=== PATIENT | female | born 1990 | race Caucasian/White ===

== ENCOUNTER 2019-02-21 12:56 | Emergency (ER) | payer SELFPAY ==
[2019-02-21 13:50] LABS: Absolute Lymphocytes (CBC) 1.5 K/uL (0.7-4.9); Absolute Monocytes 0.5 K/uL (0.1-1.3); Absolute Neutrophil 4.2 K/uL (1.8-8.0); Basophils % 0.5 % (0-1.3); Eosinophils % 1.8 % (0-4.4); Hematocrit 40.3 % (36.0-45.0); Lymphocytes % 24.2 % (15.3-44.8); MPV 8.9 fL (7.6-11.3); Monocytes % 8.2 % (3.3-12.3); RBC Red Blood Cell Count 4.56 M/uL (3.86-4.86)
[2019-02-21 14:15] LABS: BUN Blood Urea Nitrogen 10 mg/dL (7-18); Bicarbonate 27 mmol/L (21-32); Glucose Level 85 mg/dL (74-106); HCG, Quantitative 2 mIU/mL (1-3); Potassium 3.9 mmol/L (3.5-5.1); Sodium Level 141 mmol/L (136-145)
[2019-02-21 14:26] LABS: Urine Blood 3+ (NEG); Urine Glucose NEGATIVE (NEG); Urine Protein NEGATIVE (NEG)
--- NOTE | 2019-02-21 14:35 | EDPHYS ---
Physician Documentation [facility] Name: Spencer Vang Age: 28 yrs Sex: Female : 1990 Arrival Date: 02/21/2019 Time: 13:00 Bed 20 Private MD: ED Physician Cory Kulkarni HPI: 02/21 14:49 This 28 yrs old Female presents to ER via Ambulatory with complaints of kb Vaginal Bleeding, + Preg <12wks. 14:49 The patient presents to the emergency department with vaginal bleeding, that is light. kb course: care: none, Leakage of Fluid: none appreciated, Ultrasound: the patient has not had an ultrasound, Risk/complications: no obvious risks or complications are appreciated. Previous pregnancies: in previous pregnancies patient has had. Associated signs and symptoms: Pertinent positives: vaginal bleeding. The patient has not experienced similar symptoms in the past. The patient has not recently seen a physician. 14:50 Pt reports she took 2 tests last week and they were positive. Started having kb vaginal bleeding this morning. 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 - Social history:: Smoking status: Patient/guardian denies using tobacco. - Ebola Screening: : No symptoms or risks identified at this time. ROS: 14:48 Constitutional: Negative for fever, chills, and weight loss, Cardiovascular: Negative kb for chest pain, palpitations, and edema, Respiratory: Negative for shortness of breath, cough, wheezing, and pleuritic chest pain, Abdomen/GI: Negative for abdominal pain, nausea, vomiting, diarrhea, and constipation, MS/Extremity: Negative for injury and deformity, Skin: Negative for injury, rash, and discoloration, Neuro: Negative for headache, weakness, numbness, tingling, and seizure. 14:48 : Positive for vaginal bleeding. Exam: 14:48 Constitutional: This is a well developed, well nourished patient who is awake, alert, kb and in no acute distress. Head/Face: Normocephalic, atraumatic. Chest/axilla: Normal chest wall appearance and motion. Nontender with no deformity. No lesions are appreciated. Cardiovascular: Regular rate and rhythm with a normal S1 and S2. No gallops, murmurs, or rubs. Normal PMI, no JVD. No pulse deficits. Respiratory: Lungs have equal breath sounds bilaterally, clear to auscultation and percussion. No rales, rhonchi or wheezes noted. No increased work of breathing, no retractions or nasal flaring. Abdomen/GI: Soft, non-tender, with normal bowel sounds. No distension or tympany. No guarding or rebound. No evidence of tenderness throughout. Skin: Warm, dry with normal turgor. Normal color with no rashes, no lesions, and no evidence of cellulitis. MS/ Extremity: Pulses equal, no cyanosis. Neurovascular intact. Full, normal range of motion. Neuro: Awake and alert, GCS 15, oriented to person, place, time, and situation. Cranial nerves II-XII grossly intact. Motor strength 5/5 in all extremities. Sensory grossly intact. Cerebellar exam normal. Normal gait. Vital Signs: 13:01 BP 117 / 85; Pulse 88; Resp 16; Temp 98.4; Pulse Ox 100% ; Weight 63.5 kg; Height 5 ft. sv 5 in. (165.10 cm); Pain 0/10; 14:00 BP 114 / 78; Pulse 81; Resp 18; Pulse Ox 99% on R/A; ph 15:00 BP 111 / 81; Pulse 89; Resp 18; Temp 97.6; Pulse Ox 99% on R/A; ph 13:01 Body Mass Index 23.30 (63.50 kg, 165.10 cm) sv MDM: 13:23 Patient medically screened. kb 14:49 Data reviewed: vital signs, nurses notes. Data interpreted: Pulse oximetry: on room air kb is 100 %. Interpretation: normal. Counseling: I had a detailed discussion with the patient and/or guardian regarding: the historical points, exam findings, and any diagnostic results supporting the discharge/admit diagnosis, lab results, the need for outpatient follow up, an OB/Gyne specialist, to return to the emergency department if symptoms worsen or persist or if there are any questions or concerns that arise at home. 02/21 13:23 Order name: Quantitative Hcg; Complete Time: 14:16 kb 02/21 13:23 Order name: Abo/rh Typing; Complete Time: 14:40 kb 02/21 13:23 Order name: Basic Metabolic Panel; Complete Time: 14:16 kb 02/21 13:23 Order name: CBC with Diff; Complete Time: 14:01 kb 02/21 13:45 Order name: Urine Dipstick--Ancillary (enter results); Complete Time: 14:32 bd 02/21 13:45 Order name: Urine --Ancillary (enter results); Complete Time: 14:32 bd 02/21 13:23 Order name: Urine Test (obtain specimen); Complete Time: 13:47 kb 02/21 13:23 Order name: IV Saline Lock; Complete Time: 13:47 kb 02/21 13:23 Order name: Labs collected and sent; Complete Time: 13:47 kb 02/21 13:23 Order name: NPO; Complete Time: 13:48 kb 02/21 13:23 Order name: Urine Dipstick-Ancillary (obtain specimen); Complete Time: 13:48 kb Administered Medications: No medications were administered Point of Care Testing: Urine : 13:30 hCG Reading: Negative; ph Disposition: 15:26 Co-signature as Attending Physician, Cory Kulkarni MD I agree with the assessment and thomas plan of care. 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 Disposition: 02/21/19 14:35 Discharged to Home. Impression: Irregular menstruation, unspecified. - Condition is Stable. - Discharge Instructions: Abnormal Uterine Bleeding, Hpel-vc-[id number]. - Medication Reconciliation Form, Thank You Letter, Antibiotic Education, Prescription Opioid Use form. - Follow up: Emergency Department; When: As needed; Reason: Worsening of condition. Follow up: Private Physician; When: 2 - 3 days; Reason: Recheck today's complaints, Continuance of care, Re-evaluation by your physician. Signatures: Dispatcher [employer] Radha Alvarado, iLzet Nicholas RN RN sv Anderson, Corey, MD MD cha Hall, Patricia RN RN ph Corrections: (The following items were deleted from the chart) 14:33 14:17 Transvaginal Ob+US.RAD.BRZ ordered. EDDC EDDC 15:14 14:35 02/21/2019 14:35 Discharged to Home. Impression: Irregular menstruation, ph unspecified. Condition is Stable. Forms are Medication Reconciliation Form, Thank You Letter, Antibiotic Education, Prescription Opioid Use. Follow up: Emergency Department; When: As needed; Reason: Worsening of condition. Follow up: Private Physician; When: 2 - 3 days; Reason: Recheck today's complaints, Continuance of care, Re-evaluation by your physician. kb
--- NOTE | 2019-02-21 14:35 | ER ---
Nurse's Notes [facility] Name: Spencer Vang Age: 28 yrs Sex: Female : 1990 Arrival Date: 02/21/2019 Time: 13:00 Bed 20 Private MD: Diagnosis: Irregular menstruation, unspecified Presentation: 02/21 13:00 Presenting complaint: Patient states: vaginal bleeding and lightheadedness started sv today, pt is about 4-5 weeks . 1 pad used within the last couple of hours. Transition of care: patient was not received from another setting of care. Onset of symptoms was February 21, 2019. Care prior to arrival: None. 13:00 Method Of Arrival: Ambulatory sv 13:00 Acuity: TORSTEN 3 sv 13:30 Risk Assessment: Do you want to hurt yourself or someone else? Patient reports no ph desire to harm self or others. Initial Sepsis Screen: Does the patient meet any 2 criteria? No. Patient's initial sepsis screen is negative. Does the patient have a suspected source of infection? No. Patient's initial sepsis screen is negative. Triage Assessment: 13:02 General: Appears in no apparent distress. comfortable, Behavior is calm, cooperative, sv appropriate for age. Pain: Denies pain. Neuro: Level of Consciousness is awake, alert, obeys commands, Oriented to person, place, time, situation, Gait is steady. Respiratory: Respiratory effort is even, unlabored, Respiratory pattern is regular, symmetrical. : Reports vaginal bleeding that is bright red, spotty. 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 - Social history:: Smoking status: Patient/guardian denies using tobacco. - Ebola Screening: : No symptoms or risks identified at this time. Screenin:36 Abuse screen: Denies threats or abuse. Denies injuries from another. Nutritional ph screening: No deficits noted. Tuberculosis screening: No symptoms or risk factors identified. Fall Risk None identified. Assessment: 13:30 General: Appears in no apparent distress. comfortable, slender, well groomed, Behavior ph is calm, cooperative, appropriate for age. Pain: Denies pain. Neuro: Level of Consciousness is awake, alert, obeys commands, Oriented to person, place, time, situation, Reports dizziness. Cardiovascular: Capillary refill < 3 seconds in bilateral fingers Patient's skin is warm and dry. Respiratory: Airway is patent Respiratory effort is even, unlabored. : Reports vaginal bleeding that is with clots, moderate flow. Derm: Skin is intact, is healthy with good turgor, Skin is pink, warm \T\ dry. 14:30 Reassessment: Patient appears in no apparent distress at this time. Patient and/or ph family updated on plan of care and expected duration. Pain level reassessed. Patient is alert, oriented x 3, equal unlabored respirations, skin warm/dry/pink. Pt resting quietly, awaiting US results. Vital Signs: 13:01 BP 117 / 85; Pulse 88; Resp 16; Temp 98.4; Pulse Ox 100% ; Weight 63.5 kg; Height 5 ft. sv 5 in. (165.10 cm); Pain 0/10; 14:00 BP 114 / 78; Pulse 81; Resp 18; Pulse Ox 99% on R/A; ph 15:00 BP 111 / 81; Pulse 89; Resp 18; Temp 97.6; Pulse Ox 99% on R/A; ph 13:01 Body Mass Index 23.30 (63.50 kg, 165.10 cm) sv ED Course: 13:00 Patient arrived in ED. sv 13:01 Triage completed. sv 13:02 Arm band placed on. sv 13:22 Rad[facility] Carnes FNP-C [facility] kb 13:23 Cory Kulkarni MD is Attending Physician. kb 13:30 Patient has correct armband on for positive identification. Placed in gown. Bed in low ph position. Call light in reach. Side rails up X 1. Pulse ox on. NIBP on. Door closed. Noise minimized. Warm blanket given. 13:33 Initial lab(s) drawn, by me, sent to lab. Inserted saline lock: 22 gauge in right dh3 antecubital area, using aseptic technique. Blood collected. 13:48 Urine collected: clean catch specimen, clear, tamika blood, sediment noted. [facility] 15:01 Toña Harvey RN is Primary Nurse. ph 15:15 No provider procedures requiring assistance completed. IV discontinued, intact, ph bleeding controlled, No redness/swelling at site. Pressure dressing applied. Administered Medications: No medications were administered Point of Care Testing: Urine : 13:30 hCG Reading: Negative; ph Outcome: 14:35 Discharge ordered by . aliza 15:14 Patient left the ED. ph 15:14 Discharged to home ambulatory, with significant other. ph 15:14 Condition: good 15:14 Discharge instructions given to patient, Instructed on discharge instructions, follow up and referral plans. Demonstrated understanding of instructions, follow-up care. Signatures: Radha Carnes, Lizet Nicholas, RN RN sv Toña Harvey RN RN Benita Devries [facility] Corrections: (The following items were deleted from the chart) 13:03 13:01 Pulse 88bpm; Resp 16bpm; Pulse Ox 100%; Temp 98.4F; 63.5 kg; Height 5 ft. 5 in.; sv BMI: 23.3; Pain 0/10; sv
== END 2019-02-21 15:14 | disposition home or self-care (01) ==
LOC: ER 12:56
DX: N92.6 Irregular menstruation, unspecified (principal)
CPT/HCPCS: 36415; 80048; 81003; 81025; 84702; 85025; 86900; 86901; 99284

== ENCOUNTER 2023-09-08 14:45 | Emergency (ER) | payer OTHER, SELFPAY ==
--- OUTSIDE RECORDS SUMMARY | 2023-09-08 15:39 | XMS REPORT | Continuity of Care Document ---
:1990 Author Organization [facility] t Address [address] [place] [address] Care Team Providers Name Role Phone Sirisha RHOADES, Carl Gomez Primary Care Physician Oseas RHOADES, Sussy Amaya Attending Clinician BRENDEN ZAMAN Attending Clinician Unavailable UGO JONES Attending Clinician Unavailable ANA MARIA VÁSQUEZ Attending Clinician Unavailable REINALDO ACOSTA Attending Clinician Unavailable Payers Payer Name Policy Type Policy Number Effective Date Expiration Date S ource [employer] [id number] 2020 00:00:00 Problems This patient has no known problems. Allergies, Adverse Reactions, Alerts Allergy Allergy Status Severity Reaction(s) Onset Inactive Treating Comm ents Source Name Type Date Date Clinician Ketorola Propensi Active Hives [facility] adverse 00:00: Hospita reaction 00 l s to drug IBUPROFE Allergy Active 2019-[address] [facility] KETOROLA Allergy Active 2019-[address] [facility] Center Ibuprofe Propensi Active 2020-[address] [facility] [facility] adverse 00:00: Medical reaction 00 Center s Ketorola Propensi Active 2020-[address] [facility] adverse 00:00: kidney Medical reaction 00 functioni Francisco george Family History Family Member Diagnosis Comments Start Date Stop Date Source Natural mother Cancer [facility] Social History Social Habit Start Date Stop Date Quantity Comments Source Sexual orientation [facility] of Social 2023-08-08 2023-08-[address] function 00:00:00 00:00:00 Hospital Alcohol intake 2021-04-15 2021-04-15 [facility] Center (finding) History [facility] 2020-08-27 2020-08-[address] [facility] Alcohol Frequency 00:00:00 00:00:00 Medical Center History [facility] 2020-08-27 2020-08-[address] [facility] Alcohol Std Drinks 00:00:00 00:00:00 Medica l Center History [facility] 2020-08-27 2020-08-[address] [facility] Alcohol Binge 00:00:00 00:00:[address] Tobacco use and 2020-06-11 2020-06-[address] [facility] exposure 00:00:00 00:00:00 tobacco non-user [facility] Center Sex Assigned At [address] [facility] 00:[facility] Center Smoking Status Start Date Stop Date Source Tobacco smoking consumption unknown [facility] Never smoked tobacco [facility] Medications Ordered Filled Start Stop Current Ordering Indication Dosage Frequency Signature Comments Components Source Medication Medication Date Date Medication? Clinician (SIG) Name Name hydrOXYzine Yes 25mg [id number] Take 1 [facility] (VistariL) 9-[id number] 25 MG 00:00: 3D (25 mg Hospita capsule 00 total) by l mouth 3 (three) times a day as needed for anxiety. 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 Immunizations Ordered Immunization Filled Immunization Date Status Commen ts Source Name Name Influenza Four-QIV PF Unknown Completed [facility] 6+MO IM ([id number]) [facility] Center Covid-19 Vaccine MRNA Unknown Completed [facility] (PF) 12yr[facility] ([employer])(IMM [id number]) Vital Signs Vital Name Observation Time Observation Value Comments Source HEIGHT 2020-09-04 08:42:00 165.1 cm WEIGHT 2020-09-04 08:42:00 61.689 kg HEIGHT 2020-08-27 00:00:00 165.1 cm WEIGHT 2020-08-27 00:00:00 58.968 kg HEIGHT 2020-06-19 00:00:00 165.1 cm WEIGHT 2020-06-19 00:00:00 60.328 kg WEIGHT 2020-06-11 00:00:00 60.328 kg HEIGHT 2020-06-11 00:00:00 165.1 cm Systolic blood 2023-08-09 03:24:00 128 mm[Hg] [facility] pressure Diastolic blood 2023-08-09 03:24:00 84 mm[Hg] [facility] pressure Heart rate 2023-08-09 03:24:00 86 /min [facility] Respiratory rate 2023-08-09 03:24:00 20 /min [facility] Oxygen saturation in 2023-08-09 03:24:00 98 /min [facility] Arterial blood by Pulse oximetry Body height 2023-08-09 01:36:00 167.6 cm [facility] Body weight 2023-08-09 01:36:00 63.504 kg [facility] BMI 2023-08-09 01:36:00 22.60 kg/m2 [facility] Body temperature 2023-08-09 01:22:54 37.17 Nikole [facility] Procedures This patient has no known procedures. Plan of Care Planned Activity Planned Date Details Comments Source Future Scheduled 2025-09-[address] [facility] Test 00:00:00 malignant neoplasm of Medica l Center cervix (procedure) [code = 264477841] Future Scheduled 2023-07-[address] [facility] Test 00:00:00 (#1) [code = [facility] Influenza Vaccine (#1)] Future Scheduled 2022-11-[address] [facility] Test 00:00:00 (12+) [code = [facility] DEPRESSION SCREENING (12+)] Future Scheduled 2022-04-[address] [facility] Test 00:00:00 [facility]ing and [facility] Cent[facility] r Screening (12+) [code = Tobacco Cessation Counseling and Screening (12+)] Future Scheduled 2021-09-09 COVID-19 VACCINE (2 - [facility] Test 00:00:00 Pfizer series) [code Medical Center = COVID-19 VACCINE (2 - Pfizer series)] Future Scheduled 2008 DTAP/TDAP/TD VACCINES [facility] Test 00:00:00 (1 - Tdap) [code = Medical C enter DTAP/TDAP/TD VACCINES (1 - Tdap)] Encounters Start End Encounter Admission Attending Care Care Encounter Source Date/Time Date/Time Type Type Clinicians Facility Department ID 2023-08-08 2023-08-08 Emergency Sussy Farooq [id number] [facility] 20:37:00 22:34:00 Bjorn Amaya [id number] s t [id number] Hospit [id number] l .8 2023-08-08 2023-08-08 Emergency SUSSY FAROOQ [facility] [id number] [place] 00:00:00 00:00:[address] 2021-04-15 2021-04-15 Outpatient JUNIE [facility] [id number] 00:00:00 00:00:00 [facility] 2020-09-04 2020-09-04 Outpatient KAREN [facility] [id number] 00:00:00 00:00:00 [facility] 2020-08-27 2020-08-27 Outpatient KAREN [facility] [id number] 00:00:00 00:00:00 [facility] 2020-06-19 2020-06-19 Outpatient THALIA [facility] [id number] 00:00[facility]00 00:00:00 [facility] 2020-06-11 2020-06-11 Outpatient THALIA [facility] [id number] 00:00[facility]00 00:00:00 [facility] 2020-05-02 2020-05-02 Outpatient KARLA [facility] [id number] 00:00:00 00:00:00 [facility] Results This patient has no known results.
[2023-09-08] MEDS ORDERED: LORAZEPAM 1 MG TABLET ONE (15:43)
--- NOTE | 2023-09-08 16:11 | ER ---
Nurse's Notes [facility] Name: Spencer Vang Age: 33 yrs Sex: Female : 1990 Arrival Date: 09/08/2023 Time: 14:45 Bed 10 Private MD: Diagnosis: Anxiety disorder, unspecified Presentation: 09/08 14:57 Chief complaint: Patient states: she started feeling anxious around 1300 today, and it ap3 has been triggered by her hormones. patient has been seeing her obgyn for hormone stabilization. Coronavirus screen: At this time, the client does not indicate any symptoms associated with coronavirus-19. Ebola Screen: No symptoms or risks identified at this time. Initial Sepsis Screen: Does the patient meet any 2 criteria? No. Patient's initial sepsis screen is negative. Does the patient have a suspected source of infection? No. Patient's initial sepsis screen is negative. Risk Assessment: Do you want to hurt yourself or someone else? Patient reports no desire to harm self or others. Onset of symptoms was September 08, 2023 at 13:00. 14:57 Method Of Arrival: Ambulatory ap3 14:57 Acuity: TORSTEN 3 ap3 Triage Assessment: 15:00 General: Appears distressed, Behavior is anxious. Pain: Denies pain. Neuro: Level of ap3 Consciousness is awake, alert, obeys commands, Oriented to person, place, time, situation. Cardiovascular: Patient's skin is warm and dry. Respiratory: Airway is patent Respiratory effort is even, unlabored, Respiratory pattern is regular, symmetrical. Historical: - Allergies: 15:00 Toradol; ap3 - PMHx: 15:00 one kidney; ap3 - Immunization history:: Client reports receiving the 2nd dose of the Covid vaccine. - Social history:: Smoking status: Patient denies any tobacco usage or history of. Screenin:00 [facility] ED Fall Risk Assessment (Adult) History of falling in the last 3 months, ap3 including since admission No falls in past 3 months (0 pts). Abuse screen: Denies threats or abuse. Nutritional screening: No deficits noted. Tuberculosis screening: No symptoms or risk factors identified. Assessment: 16:23 Reassessment: Pt reports no there anxiety is much better. cm10 Vital Signs: 14:57 BP 147 / 106; Pulse 113; Resp 21; Temp 98.8; Pulse Ox 98% on R/A; Weight 63.5 kg; ap3 16:11 Pulse 94; Resp 18; Pulse Ox 100% on R/A; cm10 ED Course: 14:49 Patient arrived in ED. mg5 14:50 Radha Carnes FNP-C is [facility]. kb 14:50 Anand Mendez MD is Attending Physician. kb 15:00 Triage completed. ap3 15:01 Arm band placed on left wrist. ap3 16:23 Klarissa Stokes, RN is Primary Nurse. cm10 16:24 Patient has correct armband on for positive identification. Provided Education on: ER cm10 process and procedures.. 16:24 No provider procedures requiring assistance completed. Patient did not have IV access cm10 during this emergency room visit. Administered Medications: 15:33 Drug: LORazepam PO 1 mg PO once Route: PO; cm10 16:11 Follow up: Response: No adverse reaction cm10 Medication: 16:24 VIS not applicable for this client. cm10 Outcome: 16:10 Discharge ordered by . kb 16:24 Discharged to home ambulatory, pt left via UBER cm10 16:24 Condition: good 16:24 Discharge instructions given to patient, Instructed on discharge instructions, follow up and referral plans. Demonstrated understanding of instructions, follow-up care, 16:24 Patient left the ED. cm10 Signatures: Radha Carnes FNP-C FNP-Ckb Prokisch, Amanda, RN RN ap3 Klarissa Stokes, RN RN cm10 Deneen Castro mg5
--- NOTE | 2023-09-08 16:11 | EDPHYS ---
Physician Documentation [facility] Name: Spencer Vang Age: 33 yrs Sex: Female : 1990 Arrival Date: 09/08/2023 Time: 14:45 Bed 10 Private MD: ED Physician Anand Mendez HPI: 09/08 15:27 This 33 yrs old Female presents to ER via Ambulatory with complaints of Anxiety. kb 15:27 The patient presents to the emergency department with anxiety. Onset: The kb symptoms/episode began/occurred at 13:00. Associated signs and symptoms: Pertinent positives; anxiety. Severity of symptoms: At their worst the symptoms were moderate in the emergency department the symptoms are unchanged. The patient has not experienced similar symptoms in the past. The patient has not recently seen a physician. Pt states she has been having panic attacks for a while due to hormone imbalance. 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 States they are trying different medications and control to control. Reports she has a panic attack every times she starts spotting and she started spotting at 1300 today. States she started having a panic attack and cannot calm herself down like she normally can so she came to see if we could give her something to make it stop. Historical: - Allergies: 15:00 Toradol; ap3 - PMHx: 15:00 one kidney; ap3 - Immunization history:: Client reports receiving the 2nd dose of the Covid vaccine. - Social history:: Smoking status: Patient denies any tobacco usage or history of. ROS: 15:26 Constitutional: Negative for fever, chills, and weight loss, kb 15:26 Psych: Positive for anxiety, 15:26 All other systems are negative, Exam: 15:26 Head/Face: Normocephalic, atraumatic. ENT: Moist Mucous membranes Cardiovascular: kb Regular rate Respiratory: Respirations even and unlabored. No increased work of breathing. Talking in full sentences Abdomen/GI: Soft, non-tender. No distention Skin: Warm, dry with normal turgor. Normal color. MS/ Extremity: Pulses equal, no cyanosis. Neurovascular intact. Full, normal range of motion. Neuro: Awake and alert, GCS 15, oriented to person, place, time, and situation. Moves all extremities. Normal gait. 15:26 Constitutional: The patient appears alert, awake, anxious, 15:26 Psych: Behavior/mood is anxious, Affect is animated, Oriented to person, place, time, Patient has no thoughts/intents to harm self or others. Vital Signs: 14:57 BP 147 / 106; Pulse 113; Resp 21; Temp 98.8; Pulse Ox 98% on R/A; Weight 63.5 kg; ap3 16:11 Pulse 94; Resp 18; Pulse Ox 100% on R/A; cm10 MDM: 14:50 Patient medically screened. kb 15:27 Data reviewed: vital signs, nurses notes. kb 15:27 Differential diagnosis: acute psychotic break, depression, psychosis secondary to kb non-compliance, acute stress reaction, anxiety. Counseling: I had a detailed discussion with the patient and/or guardian regarding the historical points, exam findings, and any diagnostic results supporting the discharge/admit diagnosis, the need for outpatient follow up, a family practitioner, to return to the emergency department if symptoms worsen or persist or if there are any questions or concerns that arise at home. Administered Medications: 15:33 Drug: LORazepam PO 1 mg PO once Route: PO; cm10 16:11 Follow up: Response: No adverse reaction cm10 Disposition: 17:11 Co-signature as Attending Physician, Anand Mendez MD I reviewed the patient's care rn provided by the Advanced Practice Provider and agree with the diagnosis and treatment plan. Disposition Summary: 09/08/23 16:10 Discharge Ordered Notes: Location: Home kb Condition: Stable kb Diagnosis - Anxiety disorder, unspecified kb Followup: kb - With: Emergency Department - When: As needed - Reason: Worsening of condition Followup: kb - With: Private Physician - When: 2 - 3 days - Reason: Recheck today's complaints, Continuance of care, Re-evaluation by your physician Discharge Instructions: - Discharge Summary Sheet kb - Panic Attack, [id number] kb Forms: - Medication Reconciliation Form kb - Thank You Letter kb - Antibiotic Education kb - Prescription Opioid Use kb - Patient Portal Instructions kb - Leadership Thank You Letter kb Signatures: Radha Carnes FNP-C FNP-Anand Watson MD MD rn Prokisch, Amanda, RN RN ap3 Klarissa Stokes RN RN cm10
[2023-09-08 16:29] VITALS: BP 147/106; TEMP 98.8
[2023-09-08 16:30] VITALS: O2SAT 100
== END 2023-09-08 16:24 | disposition home or self-care (01) ==
LOC: ER 14:45
DX: F41.9 Anxiety disorder, unspecified (principal); Z88.5 Allergy status to narcotic agent
CPT/HCPCS: 99283